=== PATIENT | female | born 1965 | race Caucasian/White ===

== ENCOUNTER 2018-09-19 11:07 | Emergency (ER) | payer MEDICAID ==
[~2018-09-19] VITALS: Ht 167.6 cm; Wt 101.0 kg
[2018-09-19 11:24] VITALS: BP 149/94
[2018-09-19] MEDS ORDERED: ketorolac tromethamine 15mg/ml inj. IM ONE (13:15)
[2018-09-19] MEDS ORDERED: ketorolac trometh inj. 60 MG/2 ML VIAL IM ONE (13:30)
[2018-09-19] MEDS ORDERED: IBUP-1984 PO (13:37)
[2018-09-19] MEDS ORDERED: CYCL-1 PO (13:37)
[2018-09-19] MEDS ORDERED: DOXY100C2 PO (13:37)
== END 2018-09-19 13:52 | disposition home or self-care (01) ==
LOC: ER 11:08
DX: M54.5 Low back pain (principal); L03.317 Cellulitis of buttock; E11.9 Type 2 diabetes mellitus without complications; J45.909 Unspecified asthma, uncomplicated; Z79.899 Other long term (current) drug therapy; Z88.0 Allergy status to penicillin
CPT/HCPCS: 82948; 96372; 99283; J1885

== ENCOUNTER 2024-12-30 13:40 | Emergency (ER) | payer MEDICAID ==
[~2024-12-30] VITALS: Ht 172.7 cm; Wt 103.2 kg
[~2024-12-30 13:40] MED LIST: CYCL-1 PO
[2024-12-30] MEDS ORDERED: CLOT30CR19 TOP (14:57)
[2024-12-30] MEDS ORDERED: DOXY100C43 PO (14:57)
[2024-12-30 15:03] VITALS: BP 138/88; PULSE 84; RESP 18; TEMP 98.9; O2SAT 99
== END 2024-12-30 15:04 | disposition home or self-care (01) ==
LOC: ER 13:41
DX: S91.102A Unspecified open wound of left great toe without damage to nail, initial encounter (principal); E11.9 Type 2 diabetes mellitus without complications; J45.909 Unspecified asthma, uncomplicated; Z88.0 Allergy status to penicillin; X58.XXXA Exposure to other specified factors, initial encounter; Y93.89 Activity, other specified; Y92.89 Other specified places as the place of occurrence of the external cause; Y99.8 Other external cause status
CPT/HCPCS: 99283